=== PATIENT | male | born 1990 | race Two or more races ===

== ENCOUNTER 2016-07-20 22:07 | Inpatient (IN) | payer SELFPAY ==
[~2016-07-20 22:07] MED LIST: H PO; KEFLEX500 M1 PO; NORCO 5/325 TAB1 TAB PO; VICODIN 5/500 T1 TAB PO; [UNRECOGNIZED DRUG - OTHER] PO
[2016-07-20 23:53] LABS: BASO % 0.3 % (0-2); EOS % 0.5 % (0-7); EOSINOPHIL ABSOLUTE COUNT 0.1 tho/cmm (0.0-0.7); HCT-HEMATOCRIT 42.5 % (36.0-53.5); HGB-HEMOGLOBIN 15.2 gm/dl (13.5-17.0); IMMATURE GRANULOCYTES ABSOLUTE 0.14 tho/cmm (0-0.03); LYMPH % 21.3 % (20-45); LYMPH ABSOLUTE COUNT 2.9 tho/cmm (0.8-4.5); MCH (MEAN CORPUSCULAR HGB) 31.6 pg (28.0-32.0); MCHC MEAN CORPUSCULAR HGB CONC 35.8 % (32.0-36.0); MCV (MEAN CELL VOLUME) 88.4 fl (82.0-96.0); MEAN PLATELET VOLUME 10.2 cmc (9.4-12.4); MONO % 6.7 % (0-12); MONOCYTE ABSOLUTE COUNT 0.9 tho/cmm (0.0-1.2); NEUTROPHIL ABSOLUTE COUNT 9.5 tho/cmm (1.6-8.0); NEUTROPHIL-AUTOMATED 9.5 tho/cmm (1.6-8.0); NEUTROPHILS % 70.2 % (40-80); PLATELET COUNT 175 tho/cmm (150-450); RED BLOOD COUNT 4.81 mil/cmm (4.40-5.70); RED CELL DISTRIBUTION WIDTH 12.5 % (12.4-16.4); WHITE BLOOD COUNT 13.5 tho/cmm (4.0-10.0)
[2016-07-21 00:04] LABS: ANION GAP 11 mmol/L (0-20); BLOOD UREA NITROGEN 11 mg/dl (6-24); CALCIUM 8.6 mg/dl (8.5-10.5); CARBON DIOXIDE-VENOUS 30 mmol/L (22-32); CHLORIDE 104 mmol/l (96-110); CREATININE 0.93 mg/dl (0.60-1.30); GLUCOSE 92 mg/dL (70-110); POTASSIUM 3.8 mmol/L (3.7-5.1); SODIUM 141 mmol/L (135-145); eGFR VALUE FOR BLACK >90 mL/Min
[2016-07-21 06:46] LABS: BASO % 0.2 % (0-2); EOS % 0.3 % (0-7); HCT-HEMATOCRIT 39.9 % (36.0-53.5); IMMATURE GRANULOCYTES ABSOLUTE 0.12 tho/cmm (0-0.03); INR 1.1 INR (0.9-1.1); LYMPH ABSOLUTE COUNT 2.6 tho/cmm (0.8-4.5); MCH (MEAN CORPUSCULAR HGB) 31.1 pg (28.0-32.0); MCHC MEAN CORPUSCULAR HGB CONC 35.1 % (32.0-36.0); MCV (MEAN CELL VOLUME) 88.7 fl (82.0-96.0); MEAN PLATELET VOLUME 10.3 cmc (9.4-12.4); MONO % 6.9 % (0-12); MONOCYTE ABSOLUTE COUNT 0.9 tho/cmm (0.0-1.2); NEUTROPHIL ABSOLUTE COUNT 8.8 tho/cmm (1.6-8.0); NEUTROPHIL-AUTOMATED 8.8 tho/cmm (1.6-8.0); NEUTROPHILS % 70.6 % (40-80); PLATELET COUNT 161 tho/cmm (150-450); PROTHROMBIN TIME 12.2 SECONDS (9.0-13.6); RED CELL DISTRIBUTION WIDTH 12.7 % (12.4-16.4); WHITE BLOOD COUNT 12.5 tho/cmm (4.0-10.0)
[2016-07-21 06:57] LABS: ANION GAP 12 mmol/L (0-20); BLOOD UREA NITROGEN 8 mg/dl (6-24); CALCIUM 8.3 mg/dl (8.5-10.5); CARBON DIOXIDE-VENOUS 28 mmol/L (22-32); CHLORIDE 108 mmol/l (96-110); CREATININE 0.74 mg/dl (0.60-1.30); GLUCOSE 103 mg/dL (70-110); POTASSIUM 3.7 mmol/L (3.7-5.1); SODIUM 144 mmol/L (135-145); eGFR VALUE FOR BLACK >90 mL/Min
[2016-07-21 07:08] LABS: C-REACTIVE PROTEIN <0.3 mg/dl (0-0.9)
[2016-07-21 07:12] LABS: PROCALCITONIN 0.51 ng/ml (0.05-0.09)
[2016-07-21 07:41] LABS: ESR-ERYTHROCYTE SED RATE 1 mm/hr (0-15)
[2016-07-21] MEDS ORDERED: HYDROXYCUT (14:30)
[2016-07-22 04:45] LABS: HCT-HEMATOCRIT 41.5 % (36.0-53.5); HGB-HEMOGLOBIN 14.4 gm/dl (13.5-17.0); MCHC MEAN CORPUSCULAR HGB CONC 34.7 % (32.0-36.0); MCV (MEAN CELL VOLUME) 89.4 fl (82.0-96.0); MEAN PLATELET VOLUME 10.3 cmc (9.4-12.4); NEUTROPHIL-AUTOMATED 7.9 tho/cmm (1.6-8.0); PLATELET COUNT 179 tho/cmm (150-450); RED BLOOD COUNT 4.64 mil/cmm (4.40-5.70); WHITE BLOOD COUNT 13.3 tho/cmm (4.0-10.0)
[2016-07-22 04:59] LABS: ANION GAP 12 mmol/L (0-20); BLOOD UREA NITROGEN 9 mg/dl (6-24); CALCIUM 8.7 mg/dl (8.5-10.5); CARBON DIOXIDE-VENOUS 29 mmol/L (22-32); CHLORIDE 104 mmol/l (96-110); CREATININE 0.88 mg/dl (0.60-1.30); GLUCOSE 101 mg/dL (70-110); POTASSIUM 3.7 mmol/L (3.7-5.1); SODIUM 141 mmol/L (135-145); eGFR VALUE FOR BLACK >90 mL/Min
[2016-07-22 05:08] LABS: C-REACTIVE PROTEIN <0.3 mg/dl (0-0.9)
[2016-07-22 05:41] LABS: PROCALCITONIN 0.33 ng/ml (0.05-0.09)
[2016-07-22 06:57] LABS: ESR-ERYTHROCYTE SED RATE 2 mm/hr (0-15)
[2016-07-22 07:59] LABS: BAND % 28 % (0-20); BAND ABSOLUTE COUNT 3.7 tho/cmm (0-2.0)
[2016-07-23] MEDS ORDERED: KEFLEX500 M4 PO (13:46)
== END 2016-07-23 16:15 | DRG 872 ==
LOC: EDMED 22:07 → EMR2 07-21 03:25 → 5EB 07-21 04:15
PROVIDERS: Emergency Medicine; ADMIT Hospitalist
DX: A41.9 Sepsis, unspecified organism (principal); L03.116 Cellulitis of left lower limb
CPT/HCPCS: J1650; J2543; J3370; J7030; J7050